=== PATIENT | male | born 1950 | race Hispanic/Latino ===

== ENCOUNTER 2018-07-28 05:38 | Day surgery (SDC) | payer MEDICARE ==
[~2018-07-28] VITALS: Ht 172.7 cm; Wt 64.8 kg
[~2018-07-28 05:38] MED LIST: BUDE10.2 IH; LORA1TAB3 PO; LOSARTAN PO; RANI-257 PO; TETR-68 PO
[2018-07-28 05:57] VITALS: BP 161/77
[2018-07-28] MEDS ORDERED: SODIUM CHLORIDE 0.9% 1000ML 1,000 ML IV ONE (06:46)
[2018-07-28] MEDS ORDERED: PROPOFOL 10 MG/ML 20ML VIAL IV ONE ×2 (08:29)
[2018-07-28 08:55] VITALS: BP 84/54
[2018-07-28 09:00] VITALS: BP 86/55
[2018-07-28 09:05] VITALS: BP 92/58
[2018-07-28 09:10] VITALS: BP 95/64
[2018-07-28 09:15] VITALS: BP 106/69
== END 2018-07-28 09:48 | disposition home or self-care (01) ==
LOC: DAH 05:38 → ENDO 05:38
PROVIDERS: ATTEND Internal Medicine
DX: Z12.11 Encounter for screening for malignant neoplasm of colon (principal); D12.2 Benign neoplasm of ascending colon; K64.8 Other hemorrhoids; K57.30 Diverticulosis of large intestine without perforation or abscess without bleeding; Z86.010 Personal history of colon polyps; K44.9 Diaphragmatic hernia without obstruction or gangrene; K29.50 Unspecified chronic gastritis without bleeding; K22.2 Esophageal obstruction; K31.7 Polyp of stomach and duodenum; K21.0 Gastro-esophageal reflux disease with esophagitis; I10 Essential (primary) hypertension; E78.5 Hyperlipidemia, unspecified; F41.9 Anxiety disorder, unspecified; F32.9 Major depressive disorder, single episode, unspecified; Z98.890 Other specified postprocedural states; Z79.899 Other long term (current) drug therapy; J43.9 Emphysema, unspecified
CPT/HCPCS: 43239; 43249; 45385; 88305; 88341; 88342; 93005; A4606; J2704 ×2; J7030

== ENCOUNTER → 2023-05-27 | Outpatient (CLI) | payer MEDICARE ==
[~2023-05-27] MED LIST changes: -RANI-257 PO; +RANI-379 PO
== END | disposition home or self-care (01) ==
LOC: RAH 13:48
PROVIDERS: ATTEND Otolaryngology Plastic Surgery within the Head & Neck
DX: R13.10 Dysphagia, unspecified (principal); K21.9 Gastro-esophageal reflux disease without esophagitis
CPT/HCPCS: 74230; 92611